=== PATIENT | female | born 1955 | race Caucasian/White ===

== ENCOUNTER → 2019-07-21 | Outpatient (CLI) | payer BC, SELFPAY ==
[2019-07-21 09:55] LABS: Microalbumin,Random Urine 24.7 mg/L (NO RANGE EST.); Microalbumin:Creatinine Ratio 8.6 mg/g CRE (<30 mg/g CRE)
[2019-07-21 10:02] LABS: ALB/GLOB Ratio 0.9 RATIO (0.9-2.4); AST(SGOT) 15 U/L (15-37); Alanine Aminotransfer ALT/SGPT 26 U/L (13-56); Albumin, Serum 3.5 g/dL (3.2-5.0); Alkaline Phosphatase 109 U/L (45-117); Anion Gap 4 (5-15); BUN 21 mg/dL (7-18); BUN/Creat Ratio 20.8 RATIO (10-20); Calcium,Total 8.9 mg/dL (8.5-10.1); Chloride 109 mmol/L (98-107); Creatinine, Serum 1.01 mg/dL (0.55-1.02); EST Glomerular Filtration Rate 59 mL/min (>60); Est Glom Filt Rate - Afr Amer 71 mL/min (>60); Glucose 183 mg/dL (74-106); Protein, Total 7.5 g/dL (6.4-8.2); Sodium Level 139 mmol/L (136-145)
== END | disposition home or self-care (01) ==
LOC: LAB 09:07
PROVIDERS: PCP Preventive Medicine Occupational Medicine; Referring Provider Preventive Medicine Occupational Medicine; Visit Provider Preventive Medicine Occupational Medicine
DX: I10 Essential (primary) hypertension (principal); R60.0 Localized edema
CPT/HCPCS: 36415; 80053; 82043; 82570

== ENCOUNTER 2020-08-23 12:06 | Outpatient (RCR) | payer MEDICARE, SELFPAY ==
[2020-08-23] MEDS: COVID-19 VACC, MRNA(PFIZER)/PF 30 MCG/0.3 ML SYRINGE IM (11:05)
[2020-09-13] MEDS: COVID-19 VACC, MRNA(PFIZER)/PF 30 MCG/0.3 ML SYRINGE IM (11:10)
== END 2020-11-20 23:59 ==
LOC: IMMUN 12:06
PROVIDERS: PCP Preventive Medicine Occupational Medicine; Visit Provider Family Medicine
DX: Z23 Encounter for immunization (principal)
CPT/HCPCS: 0001A; 0002A; 91300

== ENCOUNTER 2022-08-09 22:12 | Emergency (ER) | payer MEDICARE, OTHER, SELFPAY ==
[2022-08-09 22:13] VITALS: BP 196/104; PULSE 85; RESP 15; TEMP 36.6; O2SAT 97; BMI 41.9
--- NOTE | 2022-08-09 22:32 | ED.VIS.BACK ---
HPI History of Present Illness Chief Complaint: Back Informant: patient Onset/Context/Timing Onset: Days (Mild times couple days, worse tonight) Context: Gradual Onset Narrative Narrative: Patient presents secondary to back pain. She states she had a history of back problems in the past. 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 She reports having a viral illness last week which landed her in bed for couple days. She states usually when she is sedentary like that her back will tighten up. Was tight a few days ago but seem to work itself out. Tonight her pain worsened. She has a TENS unit that she tried without improvement. She found 1 old Vicodin tab in the cabinet. She took 2 doses, each half tab this evening without improvement. She denies any direct trauma. [facility] Medical History Hypertension Home Medications cyclobenzaprine 10 mg tablet 10 mg PO TID PRN Muscle Spasm #10 TABLETS 08/09/22 [Rx Last Taken Unknown] hydrocodone-acetaminophen 5-325mg 5mg-325mg 1 tab PO Q6H PRN PRN Pain 3 days #10 TABLETS 08/09/22 [Rx Last Taken Unknown] Allergy/AdvReac Type Severity Reaction Status Date / Time No Known Allergies Allergy Verified 08/09/22 22:17 ROS ROS ED Constitutional Constitutional ED: Denies chills or fever(s) Eyes Eyes: Denies change in vision or discharge from eye(s) ENT ENT ED: Denies discharge from eye(s), rhinorrhea or sore throat Cardiovascular Cardiovascular: Denies chest pain or palpitations Respiratory/Chest Respiratory/Chest: Denies cough or dyspnea Gastrointestinal Gastrointestinal: Denies abdominal pain, nausea or vomiting Genitourinary Genitourinary ED: Denies dysuria Musculoskeletal Musculoskeletal: Reports back pain; Denies extremity pain Integumentary Denies Abrasions or rash Neurologic Neurologic: Denies headache(s) or weakness Psychiatric Psychiatric: Denies anxiety or depression Allergic/Immunologic Allergic/Immunologic ED: Denies lip swelling or urticaria EXAM Physical Exam Const Vital Signs: 08/09/22 22:13 Temperature 97.9 F Temperature Source Temporal Pulse Rate 85 Respiratory Rate 15 Blood Pressure 196/104 H Blood Pressure Mean 134 Pulse Ox 97 Oxygen Delivery Method Room Air Positive well nourished and well developed General Appearance ED: well developed HEENT Reports normocephalic and head/scalp atraumatic Eyes PERRL and EOMs intact bilaterally Neck supple Chest Wall inspection of chest normal and palpation of chest normal Resp normal respiratory effort and clear to auscultation bilaterally Cardio regular rate and regular rhythm GI non-tender Palpation: soft Back/Spine Back/Spine Narrative: Mild tenderness in the right thoracolumbar paraspinal region. No midline tenderness. No skin changes. Extremity normal to inspection Neuro oriented x3 and no sensory deficits noted Sensorium / Orientation: alert Motor Exam: strength 5/5 throughout Psych mental status grossly normal Skin no rashes or lesions noted MDM MDM MDM Narrative Medical decision making narrative: I did review patient's prior medication history as well as OAR[facility] report for prior visits. It does not appear that she has been to see her doctor in about a year and a half. Her OARRS report is negative. With no direct fall or trauma I do not feel imaging is necessary. Patient will be given Davis and Flexeril here with prescriptions for the same. Blood pressure is elevated at this time which is likely secondary to her pain. She is due to take her blood pressure medication when she gets home tonight as well. Patient is comfortable with the plan and will follow up with her primary care physician. Discharge Plan Triage Chief Complaint: Back ED Provider: Ca Mishra Dx/Rx/DC Orders Clinical Impression: Back pain, Muscle spasm Instructions: ED Back Spasm, No Trauma, ED Back and Neck Pain, General Prescriptions: New hydrocodone-acetaminophen 5-325 mg tablet 1 tab PO Q6H PRN PRN (Reason: Pain) 3 Days Qty: 10 0RF cyclobenzaprine 10 mg tablet 10 mg PO TID PRN (Reason: Muscle Spasm) Qty: 10 0RF Primary Care Provider: Mauri Vela Referrals: Mauri Vela DO [Primary Care Provider] - 1-2 Weeks Disposition Disposition: Home, Self Care
[2022-08-09] MEDS: HYDROcodone Bitartrate/Apap 5/325 Tablet PO (22:44)
[2022-08-09] MEDS: cycloBENZAPRine HCl 10 MG Tablet PO (22:44)
== END 2022-08-09 23:01 | disposition home or self-care (01) ==
LOC: ED 22:45
PROVIDERS: Emergency Provider Emergency Medicine; PCP Preventive Medicine Occupational Medicine; Visit Provider Emergency Medicine
DX: M62.830 Muscle spasm of back (principal); M54.9 Dorsalgia, unspecified; I10 Essential (primary) hypertension
CPT/HCPCS: 99283

== ENCOUNTER → 2022-11-26 | Outpatient (CLI) | payer MEDICARE, OTHER, SELFPAY ==
[2022-11-26 11:49] LABS: ALB/GLOB Ratio 0.9 RATIO (0.9-2.4); AST(SGOT) 17 U/L (15-37); Alanine Aminotransfer ALT/SGPT 23 U/L (13-56); Albumin, Serum 3.7 g/dL (3.2-5.0); Alkaline Phosphatase 104 U/L (45-117); Anion Gap 7 (5-15); BUN 15 mg/dL (7-18); BUN/Creat Ratio 17.1 RATIO (10-20); Calcium,Total 9.5 mg/dL (8.5-10.1); Chloride 107 mmol/L (98-107); Cholesterol 205 mg/dL (200); Creatinine, Serum 0.88 mg/dL (0.55-1.02); EST Glomerular Filtration Rate 68 mL/min (>60); Est Glom Filt Rate - Afr Amer 83 mL/min (>60); Globulin 4.1 g/dL (2.2-4.2); Glucose 132 mg/dL (74-106); High Density Lipoprotein 48 mg/dL; Potassium 3.9 mmol/L (3.5-5.1); Protein, Total 7.8 g/dL (6.4-8.2); Sodium Level 139 mmol/L (136-145); Triglycerides 105 mg/dL; Very Low Density Lipoprotein 21 mg/dL (5-40)
[2022-11-26 11:50] LABS: Microalbumin:Creatinine Ratio 56.6 mg/g CRE (<30 mg/g CRE)
== END | disposition home or self-care (01) ==
LOC: LAB 10:14
PROVIDERS: PCP Preventive Medicine Occupational Medicine; Referring Provider Preventive Medicine Occupational Medicine; Visit Provider Preventive Medicine Occupational Medicine
DX: E78.5 Hyperlipidemia, unspecified (principal); I10 Essential (primary) hypertension
CPT/HCPCS: 36415; 80053; 80061; 82043; 82570

== ENCOUNTER → 2023-06-22 | Outpatient (CLI) | payer MEDICARE, OTHER, SELFPAY ==
--- NOTE | 2023-06-22 12:12 | BI_ITS ---
MAMMOGRAPHY - BILATERAL SCREENING REASON FOR EXAM: Female, 67 years old. Routine annual screening examination. PERTINENT HISTORY: Non-contributory. TECHNIQUE: Digital bilateral breast keron (3D mammographic acquisition) in the CC and MLO projections. 2-D mediolateral oblique (MLO) and craniocaudad (CC) views of both breasts were obtained. CAD: Full Field Digital Mammography with Computer Added Detection was performed. COMPARISON: Comparison is made with prior outside examination May 15, 2020. FINDINGS: Breast Composition: The breasts are almost entirely fatty. There are no dominant masses or suspicious calcifications. Stable 2 mm nodules in the central lateral aspect of the right breast. These most likely represent small intramammary lymph nodes. No other significant abnormalities are identified. There has been no significant change since the prior study. BI/SCRN MAMM (CAD)W/KERON BILAT IMPRESSION: Stable bilateral screening mammogram. Yearly follow-up mammogram recommended. (A) ASSESSMENT CATEGORY: BIRADS Category 2: Benign. A letter regarding these results will be sent to the patient by the facility within 30 days. Approximately 10% of breast cancers are not detected by mammography. A normal mammogram should not delay biopsy of a clinically suspicious abnormality. [id number] Electronically Signed: Francisco Javier Farley MD at 9:20 EST ,
--- OUTSIDE RECORDS SUMMARY | 2023-06-22 12:28 | XMS RPT_ITS | CCD ---
Author Name Unknown Address [address] [place] [address] Organization [facility] Care Team Providers Care Chief Information Security Officer Name Role Phone MAYA LACKEY-DAVID, DEANNA Duong Attending Un available ALEJO CABELLO, SOMMER Primary Care Unavailable ALEJO CABELLO, SOMMER Primary Care Unavailable PENNY SHAW, DR VELASQUEZ TAMEZ Attending Mariela DHILLON DO, SOMMER Primary Care Unavailable DILCIA LACKEY-HILARY HERNANDEZ Attending Unavailnikia DHILLON DO, SOMMER Attending Unavailable SOMMER DHILLON DO Primary Care Unavailable DANISH JAY MD Attending Unavailable ALEJO CABELLO, SOMMER Primary Care Unavailable DANISH JAY MD Attending Unavailable ALEJO CABELLO, SOMMER Primary Care Unavailable Problems Active Problems Problem Classification Problem Date Documented Da te Episodic/Chronic Unclassified (1 source) Low back pain, unspecified; Translations: [Low back pain, unspecified] Onset: 03-31-2023 Past or Other Problems Problem Classification Problem Date Documented Da te Episodic/Chronic Unclassified (1 source) Low back pain, unspecified; Translations: [Low back pain, unspecified] Onset: 03-31-2023 Results Test Name Value Interpretation Reference Range Facil ity Encounters Encounter Date Encounter Type Care Provider Facility Start: 05-22-2023 End: 05-23-2023 ambulatory SOMMER DHILLON DO Facility:B Start: 04-07-2023 End: 04-08-2023 ambulatory DANISH JAY MD Facility:B Start: 03-31-2023 End: 04-05-2023 ambulatory SOMMER DHILLON DO Facility:B Start: 03-24-2023 End: 03-25-2023 ambulatory DANISH JAY MD Facility:B Start: 03-17-2023 End: 03-18-2023 ambulatory DEANNA TREJO 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-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 MICRO - Microbiology PROCEDURE: Urine Culture [*1] SOURCE: Urine, Clean Catch BODY SITE: COLLECTED DATE/TIME: 03/31/2023 15:44 EDT RECEIVED DATE/TIME: 04/01/2023 19:59 EDT START DATE/TIME: 04/01/2023 19:59 EDT FREE TEXT SOURCE: FINAL REPORTS Final Report [] Verified Date/Time/Personnel: 04/03/2023 07:41 EDT 10,000 - 50,000 cfu/ml Mixed growth consistent with normal urogenital genevieve. PRELIMINARY REPORTS Preliminary Report [] Verified Date/Time/Personnel: 04/02/2023 09:42 EDT No growth to date Performing Locations *1: This test was performed at: [facility], [address] [place] [address], [address] [place] [address] ([place]) Summary Purpose Family History No Family History Records Found Advance Directives No Advanced Directives Records Found Additional Source Comments INFORMATION SOURCE (unrecogn ized section and content) FOR RECORDS PERTAINING TO PATIENTS WHO ARE OR HAVE BEEN ENROLLED IN A CHEMICAL DEPENDENCY/SUBSTANCEABUSE PROGRAM, SOME INFORMATION MAY BE OMITTED. This clinical summary was aggregated from multiple sources. Caution should be exercised in using it in the provision of clinical care. This summary normalizes information from multiple sources, and as a consequence, information in this document may materially change the coding, format and clinical context of patient data. In addition, data may be omitted in some cases. CLINICAL DECISIONS SHOULD BE BASED ON THE PRIMARY CLINICAL RECORDS. [facility]. provides no warranty or guarantee of the accuracy or completeness of information in this document.
== END | disposition home or self-care (01) ==
LOC: OPBI 12:11
PROVIDERS: PCP Preventive Medicine Occupational Medicine; Referring Provider Preventive Medicine Occupational Medicine; Visit Provider Preventive Medicine Occupational Medicine
DX: Z12.31 Encounter for screening mammogram for malignant neoplasm of breast (principal)
CPT/HCPCS: 77063; 77067

== ENCOUNTER → 2024-02-02 | Outpatient (CLI) | payer MEDICARE, OTHER, SELFPAY | END | disposition home or self-care (01) | LOC: LABSPEC 16:20 | PROVIDERS: PCP Preventive Medicine Occupational Medicine; Referring Provider Otolaryngology Otolaryngology/Facial Plastic Surgery; Visit Provider Otolaryngology Otolaryngology/Facial Plastic Surgery | DX: J02.9 Acute pharyngitis, unspecified (principal) | CPT/HCPCS: 87070 ==

== ENCOUNTER → 2024-11-01 | Outpatient (CLI) | payer MEDICARE, OTHER, SELFPAY ==
--- NOTE | 2024-11-01 13:10 | CT_ITS ---
PROCEDURE: ABDOMEN/PELVIS WITHOUT CONT 11/01/2024 REASON FOR EXAM: GROSS HEMATURIA TECHNIQUE: Abdomen and pelvis CT without intravenous contrast. Noncontrast technique limits evaluation of the abdominal and pelvic viscera. Coronal and Sagittal reconstruction series were provided. One or more dose reduction techniques were used (e.g., Automated exposure control, adjustment of the mA and/or kV according to patient size, use of iterative reconstruction technique). PATIENT PREPARATION: Per protocol ORAL CONTRAST TYPE: None. COMPARISON: None FINDINGS: Lung bases: The lung bases are clear. Coronary artery calcification. Small hiatal hernia. Liver: Normal size. Findings suggestive of a 1 cm cyst in the mid to lateral aspect of the right lobe of the liver. Gallbladder: Unremarkable Spleen: Normal size. Pancreas: Normal size. No surrounding inflammation. Adrenals: Unremarkable Kidneys: 1.2 cm cyst in the upper lateral posterior aspect of the left kidney. 1.8 cm cyst in the lower lateral aspect of the left kidney. There is a 7 mm nonobstructive calculus in the midpole calyx of the right kidney. Marked degree of right hydronephrosis due to a 7.2 mm calculus in the midportion of the right ureter. Bladder: Empty bladder. Reproductive Organs: Prior hysterectomy. Adnexal regions are unremarkable. Bowel: Sigmoid diverticulosis Appendix: The appendix is not identified. There is no inflammatory process identified in the right lower quadrant to suggest appendicitis. Lymph nodes: No suspicious lymph node enlargement. Vasculature: Mild diffuse atherosclerotic calcifications are noted. Peritoneum / Retroperitoneum: Unremarkable Bones: Degenerative changes of the spine. Marked degree of right hydronephrosis and hydroureter due to a 7.2 mm calculus in the midportion of the right ureter. CT/Abdomen/Pelvis without Cont IMPRESSION: Marked degree of right hydronephrosis and right hydroureter due to 7.2 mm calcu pramod in the midportion of the right ureter. Nonobstructive right intrarenal calculus. Left renal cysts. Reading Location: [place] [address]
== END | disposition home or self-care (01) ==
LOC: CT 13:08
PROVIDERS: PCP Preventive Medicine Occupational Medicine; Referring Provider Urology; Visit Provider Urology
DX: R10.9 Unspecified abdominal pain (principal); R31.0 Gross hematuria; Z87.442 Personal history of urinary calculi
CPT/HCPCS: 74176

== ENCOUNTER 2024-11-02 11:54 | Day surgery (SDC) | payer MEDICARE, OTHER, SELFPAY ==
--- NOTE | 2024-11-01 15:48 | PAT.ANESEVAL ---
Pre-Assessment Diagnosis/Proposed Procedure Planned Operative Procedure(s): RIGHT URETEROSCOPY LASER STONE RIGHT URETERAL STENT PLACEMENT Anesthesia History Anesthesia History - iron handler: Anesthesia History - iron handler Hx Hospitalization No 11/01/24 15:05 Any Problems With Anesthesia No 11/01/24 15:05 Cholinesterase deficiency No 11/01/24 15:05 You/Your Family Experience No 11/01/24 15:05 fever (hyperthermia) with Relationship Recent Exposure to Contagious Disease Does patient have nerve No 11/01/24 15:05 stimulator Patient instructed to have device shut off --Does patient have Pacemaker or ICD? When Was Last Pacemaker Check QUESTION #4 FULL TEXT: You/Your Family Experience fever (hyperthermia) with Anesthesia Last Oral Intake Last Oral intake: Last Oral Intake NPO since Meds taken in AM with sips of water? Meds patient instructed to take am of surgery PONV PONV - iron handler: PONV - iron handler Female Yes 11/01/24 15:05 HX of Motion Sickness No 11/01/24 15:05 HX of N/V After Surgery No 11/01/24 15:05 Non-Smoker Yes 11/01/24 15:05 Duration of Surgery greater Yes 11/01/24 15:05 than 60 minutes Number of Risk Factors 3 11/01/24 15:05 PONV Score Moderate Risk 11/01/24 15:05 Height & Weight Height & Weight: Anesthesia: Height & Weight Height 5 ft 4 in 08/09/22 22:13 Respiratory Assessment Respiratory Assessment - iron handler: Respiratory Tract Infection Hx - iron handler Hx Respiratory Tract Infection No 11/01/24 15:05 STOP Sleep Apnea STOP Sleep Apnea - iron handler: STOP Sleep Apnea - iron handler Hx Hypertension Yes: CONTROLLED ON MED 11/01/24 15:05 Hx Sleep Apnea No 11/01/24 15:05 CPAP BIPAP Do you snore loudly (louder No 11/01/24 15:05 than talking or can be heard Do you often feel tired/ No 11/01/24 15:05 fatigued/ sleepy during daytime? Has anyone observed you stop No 11/01/24 15:05 breathing during sleep? STOP Results Negative 11/01/24 15:05 QUESTION #5 FULL TEXT : Do you snore loudly (louder than talking or can be heard through closed doors)? 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 Specify any problems Hx of Preganancy in last 3 No 11/01/24 15:05 Months Nurse Filling Out Transfusion VCHRISTIN 11/01/24 15:05 & Questions: Date: 11/01/24 11/01/24 15:05 Time: 15:06 11/01/24 15:05 Patient unable to answer at this time (ie. confused, unrespo /Reproduction History /Reproductive History - iron handler: /Reproductive Hx- iron handler Hx Now No 11/01/24 15:05 Gestational Age (in weeks): EDC: Hx Hx Para Hx Section SAB No 11/01/24 15:05 PFSH Medical History (Updated 11/01/24 @ 15:05 by Bonnie Henderson) Wears glasses Post-menopausal Cancer Kidney stones History of hiatal hernia Gastric reflux Shortness of breath on exertion History of echocardiogram Hypertension Home Medications ?Medication ?Instructions ?Recorded ?Last Taken ?Type clonidine HCl 0.1 mg tablet 0.1 mg PO BID 11/01/24 Unknown History empagliflozin 10 mg tablet 10 mg PO DAILY 11/01/24 10/31/24 History (Jardiance) nisoldipine 17 mg tablet,extended 17 mg PO DAILY 11/01/24 Unknown History release 24 hr spironolactone 25 mg tablet 25 mg PO DAILY 11/01/24 Unknown History Allergy/AdvReac Type Severity Reaction Status Date / Time tamsulosin (From Flomax) Allergy Severe CRAMPING Verified 11/01/24 14:51 Surgical History (Updated 11/01/24 @ 15:05 by Bonnie Henderson) Hx of appendectomy Hx of hysterectomy History of cystoscopy Social History Smoking Status: Never smoker Audit: Pertinent Findings Pertinent Findings Additional pertinent findings: Patient took Jiardia 10/31/2024. Typically there is a 72-hour wait before anesthetic. However Dr. Kaiser says that this is somewhat urgent procedure that should must be performed. Due to risk of infection. Therefore consider intubation if patient needs a general anesthetic. Recommendation Anesthesia Recommendation Anesthesia recommendation: OPTIMIZED for anesthesia
[2024-11-02] VITALS (9 sets, daily range): BP systolic 150–158; BP diastolic 73–96; PULSE 63–85; RESP 14–18; TEMP 36.1–36.8; O2SAT 92–99; BMI 40.8
[2024-11-02] MEDS: Lactated Ringers 1,000 ML 15 ML IV (12:40)
--- NOTE | 2024-11-02 13:07 | PCM.PRE.AN2 ---
ASA Classification* ASA Classification ASA Classification: 2 Assessment & Plan Anesthesia* Anesthesia Assessment Anesthesia Assessment: Discussed sedation and/or anesthesia options, risks, benefits, and alternatives with patient/parents/legal guardian/POA. Questions invited. The patient/parents/legal guardian/POA seems to understand and agrees to proceed with anesthesia plan. Reviewed the physical assessment, medical history, allergy history and patient home medications list prior to surgery/procedure/anesthetic and documented any changes. Performed airway and anesthesia risk assessments. Anesthesia Type Anesthesia Type: General (ET due to GLP-1) Anesthesia Focused Assessment* Temperature: 97.3 F Pulse Rate: 85 Blood Pressure: 156/96 Respiratory Rate: 16 Pulse Ox: 99 Airway Assessment Mouth opens: >3 cm Mallampati Score: II Focused Labs Anesthesia Preop lab: CBC WBC 5.9 K/mm3 (4.4-11.0) 12/03/16 10:24 12/03/16 RBC 4.32 M/mm3 (4.2-5.4) 12/03/16 10:24 12/03/16 Hgb 12.7 g/dl (12.0-15.0) 12/03/16 10:24 12/03/16 Hct 38.3 % (37-47) 12/03/16 10:24 12/03/16 Plt Count 322 K/mm3 (150-450) 12/03/16 10:24 12/03/16 CHEMISTRY Potassium 3.9 mmol/L (3.5-5.1) 11/26/22 10:16 11/26/22 Sodium 139 mmol/L (136-145) 11/26/22 10:16 11/26/22 BUN 15 mg/dL (7-18) 11/26/22 10:16 11/26/22 Creatinine 0.88 mg/dL (0.55-1.02) 11/26/22 10:16 11/26/22 Glucose 132 mg/dL (74-106) H 11/26/22 10:16 11/26/22 COAG Pre-Assessment Diagnosis/Proposed Procedure Planned Operative Procedure(s): RIGHT URETEROSCOPY LASER STONE RIGHT URETERAL STENT PLACEMENT Anesthesia History Anesthesia History - pan devulcanizer: Anesthesia History - pan devulcanizer Hx Hospitalization No 11/01/24 15:05 Any Problems With Anesthesia No 11/01/24 15:05 Cholinesterase deficiency No 11/01/24 15:05 You/Your Family Experience No 11/01/24 15:05 fever (hyperthermia) with Relationship Recent Exposure to Contagious No 11/02/24 12:32 Disease Does patient have nerve No 11/01/24 15:05 stimulator Patient instructed to have device shut off --Does patient have Pacemaker No 11/02/24 12:32 or ICD? When Was Last Pacemaker Check QUESTION #4 FULL TEXT: You/Your Family Experience fever (hyperthermia) with Anesthesia Last Oral Intake Last Oral intake: Last Oral Intake NPO since 21:00 11/02/24 12:32 Meds taken in AM with sips of No 11/02/24 12:32 water? Meds patient instructed to take am of surgery PONV PONV - pan devulcanizer: PONV - pan devulcanizer Female Yes 11/01/24 15:05 HX of Motion Sickness No 11/01/24 15:05 HX of N/V After Surgery No 11/01/24 15:05 Non-Smoker Yes 11/01/24 15:05 Duration of Surgery greater Yes 11/01/24 15:05 than 60 minutes Number of Risk Factors 3 11/01/24 15:05 PONV Score Moderate Risk 11/01/24 15:05 Height & Weight Height & Weight: Anesthesia: Height & Weight Height 5 ft 4 in 11/02/24 12:32 Weight: 108 kg 11/02/24 12:32 Body Mass Index (BMI) 40.8 11/02/24 12:32 Respiratory Assessment Respiratory Assessment - pan devulcanizer: Respiratory Tract Infection Hx - pan devulcanizer Hx Respiratory Tract Infection No 11/01/24 15:05 STOP Sleep Apnea STOP Sleep Apnea - pan devulcanizer: STOP Sleep Apnea - pan devulcanizer Hx Hypertension Yes: CONTROLLED ON MED 11/01/24 15:05 Hx Sleep Apnea No 11/01/24 15:05 CPAP BIPAP Do you snore loudly (louder No 11/01/24 15:05 than talking or can be heard Do you often feel tired/ No 11/01/24 15:05 fatigued/ sleepy during daytime? Has anyone observed you stop No 11/01/24 15:05 breathing during sleep? STOP Results Negative 11/01/24 15:05 QUESTION #5 FULL TEXT : Do you snore loudly (louder than talking or can be heard through closed doors)? 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 Specify any problems Hx of Preganancy in last 3 No 11/01/24 15:05 Months Nurse Filling Out Transfusion VCHRISTIN 11/01/24 15:05 & Questions: Date: 11/01/24 11/01/24 15:05 Time: 15:06 11/01/24 15:05 Patient unable to answer at this time (ie. confused, unrespo /Reproduction History /Reproductive History - pan devulcanizer: /Reproductive Hx- pan devulcanizer Hx Now No 11/01/24 15:05 Gestational Age (in weeks): EDC: Hx Hx Para Hx Section SAB No 11/01/24 15:05 Active Medications Active Medications: Current Medications Generic Name Dose Route Start Last Admin Trade Name Freq PRN Reason Stop Dose Admin Lactated Ringer's 1,000 mls @ 15 mls/hr 11/02/24 12:15 11/02/24 12:40 IV 15 mls/hr .Q48H DEIDRE Administration Cefazolin Sodium 2 gm/ Sodium 110 mls @ 150 mls/hr 11/02/24 12:30 Chloride IV 11/02/24 13:13 INTRAOP ONE PFSH Medical History Wears glasses Post-menopausal Cancer Kidney stones History of hiatal hernia Gastric reflux Shortness of breath on exertion History of echocardiogram Hypertension Home Medications ?Medication ?Instructions ?Recorded ?Last Taken ?Type clonidine HCl 0.1 mg tablet 0.1 mg PO BID 11/01/24 Unknown History empagliflozin 10 mg tablet 10 mg PO DAILY 11/01/24 10/31/24 History (Jardiance) nisoldipine 17 mg tablet,extended 17 mg PO DAILY 11/01/24 Unknown History release 24 hr spironolactone 25 mg tablet 25 mg PO DAILY 11/01/24 Unknown History Allergy/AdvReac Type Severity Reaction Status Date / Time tamsulosin (From Flomax) Allergy Severe CRAMPING Verified 11/02/24 12:30 Surgical History Hx of appendectomy Hx of hysterectomy History of cystoscopy Social History Smoking Status: Never smoker Review of Systems (Anesthesia) ROS Narrative System reviewed and no additional complaints, except as documented.
--- NOTE | 2024-11-02 15:22 | PCM.HP.STD ---
HPI - General General Date of Service: 11/02/24 Chief Complaint: Right kidney stones and right ureteral stones HPI Narrative KETTY KHAN, is a 69 F who presents for laser lithotripsy of stone in the right mid ureter and also laser of stone in the right kidney plan to laser the stones and placed a stent on the right side [facility] Medical History Wears glasses Post-menopausal Cancer Kidney stones History of hiatal hernia Gastric reflux Shortness of breath on exertion History of echocardiogram Hypertension Home Medications ?Medication ?Instructions ?Recorded ?Last Taken ?Type clonidine HCl 0.1 mg tablet 0.1 mg PO BID 11/01/24 Unknown History empagliflozin 10 mg tablet 10 mg PO DAILY 11/01/24 10/31/24 History (Jardiance) nisoldipine 17 mg tablet,extended 17 mg PO DAILY 11/01/24 Unknown History release 24 hr spironolactone 25 mg tablet 25 mg PO DAILY 11/01/24 Unknown History Allergy/AdvReac Type Severity Reaction Status Date / Time tamsulosin (From Flomax) Allergy Severe CRAMPING Verified 11/02/24 12:30 Surgical History Hx of appendectomy Hx of hysterectomy History of cystoscopy Social History Smoking Status: Never smoker Vital Signs Vital Signs Vital Signs: 11/02/24 12:32 11/02/24 12:32 11/02/24 13:08 Temperature 97.3 F L 97.3 F L Temperature Source Temporal Pulse Rate 85 85 Respiratory Rate 16 16 Respiratory Pattern Normal Blood Pressure 156/96 H 156/96 H Blood Pressure Mean 116 Blood Pressure Source Monitor Blood Pressure Position Sitting Blood Pressure Location Right Arm Pulse Ox 99 99 Oxygen Delivery Method Room Air Weight Weight: 108 kg Body Mass Index (BMI) 40.8
--- NOTE | 2024-11-02 15:29 | DCINST_ITS ---
Discharge Instructions Diet Discharge Diet: No restrictions DC O2, CPAP, BIPAP needs Home O2 Discharge instructions: No Dressing / Incision Discharge Activity: Return to Normal Activity and May Not Drive (while taking narcotic pain medications.) Dressing / Incision Call your doctor if you observe: Fever of 101 or Higher Follow Up Care Please Follow Up With: Manuel Kaiser MD When: Call [phone] for an appointment Test Results: Test results from this visit will be discussed in further detail at your follow- up appointment, if applicable. Discharge Plan Admission Attending Provider: Manuel Kaiser Primary Care Provider: Mauri Vela Instructions Print Language: Burmese Discharge Orders/Prescriptions Prescriptions: No Action clonidine HCl 0.1 mg tablet 0.1 mg PO BID spironolactone 25 mg tablet 25 mg PO DAILY nisoldipine 17 mg tablet extended release 24 hr 17 mg PO DAILY Jardiance 10 mg tablet 10 mg PO DAILY Referrals / Follow Up: Mauri Vela DO [Primary Care Provider] - Disposition Disposition (needs filled in before D/C Order can be placed): Home, Self Care
[2024-11-02] MEDS: Cefazolin 2 GM in 0.9% Normal Saline (100mL Bag) 100 ML IV (15:41)
--- NOTE | 2024-11-02 16:43 | OP.PCM_ITS ---
Operative Report (Standard) Operative Information Date of Procedure: 11/02/24 Pre-Operative Diagnosis: Right impacted ureteral calculi large right renal calculi Post-Operative Diagnosis: The same Surgery/Procedure Performed: Cystoscopy right ureteroscopy laser lithotripsy of stone in the ureter and laser lithotripsy of stone in the right kidney, right stent placement time clock repairer: No Type of Anesthesia: General RN Documented Start/Stop Times: Operation Date: 11/02/24 14:25 Case Time Into Pre-Op 11/02/24 12:03 Out of Pre-Op 11/02/24 15:38 Anesthesia Start 11/02/24 15:41 Into Room 11/02/24 15:41 Procedure Start 11/02/24 15:54 Procedure End 11/02/24 16:42 Procedure Start Time: 15:54 Procedure Stop Time: 16:44 Select all DRAINS/GRAFTS/IMPLANTS that apply: Drains Drain details: 6 x 26 cm stent right side Estimated Blood Loss: None Specimen collected: No Description of surgery: This is a 69-year-old female who presented to my office with right flank pain CT scan was done that demonstrated stone in the mid ureter and also a large stone in the right kidney the right kidney had severe hydronephrosis stone appeared to be impacted in the mid ureter. Again taken the surgery today to lasered the stone and place a stent. Patient was taken back to the operating room after induction of anesthesia she was placed in dorsolithotomy position went into the bladder with a flexible ureteroscope was able to cannulate the right ureteral orifice with a Glidewire advanced up into the kidney and encountered the first stone in the ureter the stone was lasered completely using the thulium laser energy settings were 1 J and 2 Hz, after lasering this for stone completely then I went up the ureter further and then encountered a second stone in the ureter the stone was impacted and it was a very difficult angle I do very carefully lasered the stone to avoid any lasering of the callejas of the ureter but is quite difficult after finally lasering the stone started to stay in the middle of the stone the stone broke free and then migrated up into the kidney I then was able to pin the stone against the calyx in the upper pole and the lasered stone completely into small little pieces that should all pass on their own. We then inspected the kidney it was hydronephrotic and then in the midpole of the right kidney I found a second large stone we then set it to laser fiber for dusting 100 Hz point 0.1 J and lasered the stone into little tiny pieces and dusted the stone completely after that stone was finished lasering completely and I inspected upper pole midpole lower pole and not seeing any other fragments that needed to be lasered there was a lot of teeny tiny dust fragments throughout the kidney I then put a wire through the ureteroscope worked my way down the ureter no other stone fragments were seen along the course of the ureter but given the fact there is an impacted stone in a lot of fragments in the kidney I placed a stent, over the wire backloaded the stent and put a stent in the right kidney and then drain the bladder patient anesthetic was reversed she is taken back to the PACU in good condition we will see her next for stent removal Surgical Findings: Stone in the proximal right ureter was impacted in stone in the right kidney Complications Complications: No Admit VTE Documentation VTE Present on Admission: No VTE Mechan Device Prophylaxis: SCD's VTE Pharm Prophylaxis ordered?: No
[2024-11-02] MEDS: Ketorolac 15 MG/ML Vial IV (17:10)
--- NOTE | 2024-11-02 17:43 | PCM.POST.ANE ---
Anesthesia: Postop Eval I Current Vital Signs Temperature: 97 F Pulse Rate: 69 Blood Pressure: 154/88 Respiratory Rate: 16 Pulse Ox: 97 Oxygen Delivery Method: Room Air Assessment Airway patent: Yes Spontaneous unlabored respirations: Yes Mental status: Awake nausea: No Vomiting: No Anesthesia Complication: No Fluid Hydration Crystalloid volume administer (ml): 100 Total IV fluid infused: 100 Progress Note Anesthesia document: Postop Eval 1 completed: Yes
--- NOTE | 2024-11-02 17:44 | PCM.POSTANE2 ---
Anesthesia Postop Eval I Sum Postop Eval Completion status Anesthesia document: Postop Eval 1 completed: Yes Anesthesia Postop Eval I Summary Anesthesia Postop Eval I Summary: Anesthesia Postop Eval I: Assessment Summary Airway patent Yes 11/02/24 17:44 Spontaneous unlabored Yes 11/02/24 17:44 respirations Mental status Awake 11/02/24 17:44 nausea No 11/02/24 17:44 Vomiting No 11/02/24 17:44 Anesthesia Postop Eval I: Fluid Summary Crystalloid volume administer 100 11/02/24 17:44 (ml) Colloids volume administered ( ml) Blood Product volume administered (ml) Total IV fluid infused 100 11/02/24 17:44 Anesthesia Postop Eval I: Summary Notes Anesthesia Complication No 11/02/24 17:44 Anesthesia Complication Comment: Post-operative progress note Anesthesia: Postop Eval II Evaluation Mental status: Awake Pain Level: 0 nausea: No Vomiting: No
[2024-11-02] MEDS: HYDROcodone Bitartrate/Apap 5/325 Tablet PO (17:54)
== END 2024-11-02 18:40 | disposition home or self-care (01) ==
LOC: SDC 11:57 → AC 12:09
PROVIDERS: PCP Preventive Medicine Occupational Medicine; Referring Provider Urology; Visit Provider Urology
PROC: 0TJ98ZZ Inspection of Ureter, Via Natural or Artificial Opening Endoscopic (ICD-10-PCS; CPT 52352; principal; 2024-11-02 14:15)
DX: N13.2 Hydronephrosis with renal and ureteral calculous obstruction (principal); I10 Essential (primary) hypertension; K21.9 Gastro-esophageal reflux disease without esophagitis; Z79.899 Other long term (current) drug therapy; Z79.85 Long-term (current) use of injectable non-insulin antidiabetic drugs
CPT/HCPCS: 52356; 00873; C1769; C2617; J2405

== ENCOUNTER → 2024-12-13 | Outpatient (CLI) | payer MEDICARE, OTHER, SELFPAY ==
[2024-12-13 12:59] LABS: Hematocrit 39.6 % (37-47); Hemoglobin 13.0 g/dL (12.0-15.0); Immature Granulocytes Count 0.030 X10^3/uL (0.0-0.0); Mean Corp Hgb Conc 32.8 g/dL (32-36); Mean Corpuscular Volume 88.2 fL (81-99); Mean Platelet Vol. 10.1 fl (6.2-12.0); NRBC Flagged by Analyzer 0 % (0-5); Platelet Count 365 K/mm3 (150-450); RBC Distribution Width CV 14.5 % (11.6-14.6); RBC Distribution Width SD 46.5 fl (35.1-43.9); Red Blood Count 4.49 M/mm3 (4.2-5.4); White Blood Count 6.4 K/mm3 (4.4-11.0)
[2024-12-13 13:24] LABS: Creatinine, Urine (random) 143.00 mg/dL (28.00-217.00); Protein, Urine (Random) 11.3 mg/dL (0.0-12.0); Protein:Creat Ratio 79 mg/g CRE (0-200)
[2024-12-13 13:49] LABS: Albumin, Serum 4.3 g/dL (3.4-4.8); Anion Gap 11 (5-15); BUN 17 mg/dL (4-19); BUN/Creat Ratio 16.2 RATIO (10-20); Calcium,Total 10.1 mg/dL (7.6-11.0); Carbon Dioxide 26.1 mmol/L (21.0-32.0); Chloride 103 mmol/L (98-108); Ferritin 167 ng/mL (22-378); Glucose 104 mg/dL (70-99); Iron Binding Capacity,Total 288 ug/dL (250-450); Potassium 4.9 mmol/L (3.3-5.1)
[2024-12-13 13:52] LABS: PTHIN 52 pg/mL (11-61)
[2024-12-13 14:03] LABS: AST(SGOT) 21 U/L (<=31); Alanine Aminotransfer ALT/SGPT 21 U/L (<=34); Albumin, Serum 4.3 g/dL (3.4-4.8); Alkaline Phosphatase 97 U/L (35-104); Anion Gap 12 (5-15); BUN 17 mg/dL (4-19); BUN/Creat Ratio 16.4 RATIO (10-20); Calcium,Total 10.0 mg/dL (7.6-11.0); Carbon Dioxide 24.3 mmol/L (21.0-32.0); Chloride 102 mmol/L (98-108); Cholesterol 209 mg/dL (<=200); Globulin 3.3 g/dL (2.2-4.2); Glucose 106 mg/dL (70-99); Low Density Lipoprotein Calc. 143 mg/dL; Potassium 5.1 mmol/L (3.3-5.1); Triglycerides 102 mg/dL; Very Low Density Lipoprotein 20 mg/dL (5-40); Vitamin D,25 Hydroxy 27.2 ng/mL (30-100); cholesterol:hdl ratio screen 4.58
[2024-12-13 14:52] LABS: Iron 66 ug/dL (50-170); Iron Binding Capacity,Unsat 222 ug/dL (228-428); Uric Acid 4.3 mg/dL (2.6-6.0)
== END | disposition home or self-care (01) ==
LOC: LAB 11:12
PROVIDERS: Internal Medicine Nephrology; PCP Preventive Medicine Occupational Medicine; Referring Provider Registered Nurse; Visit Provider Registered Nurse
DX: Z00.00 Encounter for general adult medical examination without abnormal findings (principal); N18.31 Chronic kidney disease, stage 3a; I12.9 Hypertensive chronic kidney disease with stage 1 through stage 4 chronic kidney disease, or unspecified chronic kidney disease; D63.1 Anemia in chronic kidney disease; R80.9 Proteinuria, unspecified; E78.5 Hyperlipidemia, unspecified; Z13.1 Encounter for screening for diabetes mellitus; E55.9 Vitamin D deficiency, unspecified
CPT/HCPCS: 36415; 80053; 80061; 80069; 82306; 82570; 82728; 83036; 83540; 83550; 83970; 84156; 84550; 85025

== ENCOUNTER → 2025-01-12 | Outpatient (CLI) | payer MEDICARE, OTHER, SELFPAY | END | disposition home or self-care (01) | PROVIDERS: PCP Registered Nurse; Referring Provider Registered Nurse; Visit Provider Registered Nurse | DX: Z12.31 Encounter for screening mammogram for malignant neoplasm of breast (principal); Z78.0 Asymptomatic menopausal state; Z13.820 Encounter for screening for osteoporosis | CPT/HCPCS: 77063; 77067; 77080 ==

== ENCOUNTER → 2025-05-30 | Outpatient (CLI) | payer MEDICARE, OTHER, SELFPAY ==
[2025-05-30 11:32] LABS: Hematocrit 40.0 % (37-47); Hemoglobin 12.9 g/dL (12.0-15.0); Mean Corp Hgb Conc 32.3 g/dL (32-36); Mean Corpuscular Volume 88.3 fL (81-99); Mean Platelet Vol. 10.2 fl (6.2-12.0); Platelet Count 331 K/mm3 (150-450); RBC Distribution Width CV 13.9 % (11.6-14.6); RBC Distribution Width SD 44.8 fl (35.1-43.9); Red Blood Count 4.53 M/mm3 (4.2-5.4); White Blood Count 6.2 K/mm3 (4.4-11.0)
[2025-05-30 11:50] LABS: AST(SGOT) 17 U/L (<=31); Alanine Aminotransfer ALT/SGPT 16 U/L (<=34); Albumin, Serum 4.1 g/dL (3.4-4.8); Alkaline Phosphatase 98 U/L (35-104); Anion Gap 10 (5-15); BUN 17 mg/dL (4-19); BUN/Creat Ratio 20.5 RATIO (10-20); Calcium,Total 9.5 mg/dL (7.6-11.0); Carbon Dioxide 24.6 mmol/L (21.0-32.0); Chloride 104 mmol/L (98-108); Cholesterol 188 mg/dL (<=200); Globulin 3.1 g/dL (2.2-4.2); Glucose 113 mg/dL (70-99); Low Density Lipoprotein Calc. 130 mg/dL; Potassium 4.1 mmol/L (3.3-5.1); Triglycerides 76 mg/dL; Very Low Density Lipoprotein 15 mg/dL (5-40); cholesterol:hdl ratio screen 4.29
== END | disposition home or self-care (01) ==
LOC: LAB 10:02
PROVIDERS: PCP Registered Nurse; Referring Provider Registered Nurse; Visit Provider Registered Nurse
DX: E11.22 Type 2 diabetes mellitus with diabetic chronic kidney disease (principal); N18.31 Chronic kidney disease, stage 3a
CPT/HCPCS: 36415; 80053; 80061; 83036; 84100; 85027